=== PATIENT | male | born 2000 | race Caucasian/White ===

== ENCOUNTER 2024-07-28 20:05 | Emergency (ER) | payer OTHER, SELFPAY ==
[2024-07-28 20:08] VITALS: BP 133/89; PULSE 64; RESP 18; TEMP 36.7; O2SAT 99
--- NOTE | 2024-07-28 20:19 | ED.GENADUL_ITS ---
Discharge Plan Disposition Patient Disposition: Home Condition: Stable Discharge Details Chief Complaint: Laceration Clinical Impression: Laceration of left thumb Primary Care Provider: Mandie Guillory ED Provider: Navarro Pastrana Home Meds and New Rx's Prescriptions: No Action No Known Home Meds Discharge Instructions Instructions: Skin glue for minor cuts Additional Instructions: The wound should heal without any complications. If you have severe pain or redness spreading from the wound return to the emergency department for reevaluation HPI General Mode of arrival: ambulatory . Date/Time Provider Initiated Documentation: 07/28/24 20:11 . Limitations to Documentation: no limitations . Information obtained by: patient . History of Present Illness 24 year old M presents to the emergency department with the chief complaint of left thumb injury, described as mild, Quality is described as aching, and is localized to the left. Patient started experiencing this hour(s) (1) and it has been constant. No relieving factors improve symptom(s), No exacerbating factors reported . Patient notes no other symptoms.. Patient did receive the following treatments prior to arrival, none Related Data Home Medications ?Medication ?Instructions ?Recorded ?Confirmed Unknown [No Known Home Meds] 05/16/19 07/28/24 Allergies Allergy/AdvReac Type Severity Reaction Status Date / Time No Known Drug Allergies Allergy Unknown Verified 07/28/24 20:12 General Stated Complaint: Laceration MARRY: 4 Review of Systems All systems reviewed & are unremarkable except as noted in HPI and below Cardiovascular Cardiovascular: Denies chest pain and Denies dyspnea Respiratory Respiratory: Denies dyspnea Gastrointestinal Gastrointestinal: Denies abdominal pain and Denies vomiting Exam Const General: no acute distress Orientation: alert HENMT Head: normal to inspection Ears: external ears normal General nose exam: external nose normal Mouth: moist mucous membranes Eyes General: appearance normal, both eyes and all related structures Neck Neck: normal visual inspection Resp Effort & Inspection: normal respiratory effort and able to speak in complete sentences Cardio Rate: regular rate Skin General skin exam: no rashes or lesions noted Neuro General: patient alert and patient oriented x3 Extrem General: full ROM and capillary refill normal Psych Mental Status: mental status grossly normal Course Vital Signs Vital signs: Vital Signs Temperature 36.7 C 07/28/24 20:08 Pulse 64 07/28/24 20:08 Respiratory Rate 18 07/28/24 20:08 Blood Pressure 133/89 07/28/24 20:08 Pulse Oximetry 99 03/23/25 20:08 Temperature 36.7 C 07/28/24 20:08 Temperature Source Oral 07/28/24 20:08 Pulse 64 07/28/24 20:08 Respiratory Rate 18 07/28/24 20:08 Blood Pressure 133/89 07/28/24 20:08 Blood Pressure Position Sitting 07/28/24 20:08 Pulse Oximetry 99 07/28/24 20:08 Oxygen Delivery Method Room Air 07/28/24 20:08 Oxygen Flow Rate 0 07/28/24 20:08 Procedure Laceration Laceration 1: Patient Consented: Verbally Site: hand Side (If applicable): left Description: flap Depth: simple, single layer Pre-repair:: irrigated extensively Skin layer closed with: other (skin adhesive) Medical Decision Making 74-year-old male who denies any significant bleeding medical problems and states he is up-to-date on tetanus shots comes in with left thumb injury. 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 Denies falling or other injuries. He has a small less than 1 cm skin tear that has U-shaped on the left medial mid arm. He has full range of motion of the thumb and intact distal sensation. The wound is not deep enough to warrant sutures but I will cover with secondary adhesive to help keep the skin tear down while it heals. Close COVID with scabies to any complications. Patient is stable for discharge to return precautions given Quality:SDOH Health Related Social Needs: No Data to Display PFSH All Active Problems (Updated 07/28/24 @ 20:33 by Navarro Pastrana MD) Laceration of left thumb (Acute) Surgical History (Updated 11/18/18 @ 12:50 by Tiara Smith NP) No significant past surgical history Family History (Updated 11/18/18 @ 12:54 by Tiara Smith NP) Mother No problems noted. Father Hyperlipidemia Type 2 diabetes mellitus Hypertension Sister No problems noted. Brother No problems noted. Maternal Grandfather Hypertension Hyperlipidemia Heart disease Maternal Grandmother , at 61 of MVA No problems noted. Paternal Grandfather Stroke Type 2 diabetes mellitus Hypertension Heart disease Hyperlipidemia Paternal Grandmother No problems noted. Social History (Updated 11/18/18 @ 12:55 by Tiara Smith NP) Smoking/Tobacco Use Status: Never Second Hand Exposure: Yes Smoking risk assessment performed?: Yes Alcohol Intake: current Alcohol Intake frequency: holidays/special occasions only Drug use: Never Substance use type: does not use
[2024-07-28 20:35] VITALS: BP 123/75; PULSE 66; RESP 14; TEMP 36.7; O2SAT 99
== END 2024-07-28 21:02 | disposition home or self-care (01) ==
PROVIDERS: Emergency Provider Emergency Medicine; PCP Nurse Practitioner Family
DX: S61.012A Laceration without foreign body of left thumb without damage to nail, initial encounter (principal); W27.4XXA Contact with kitchen utensil, initial encounter; Y93.G1 Activity, food preparation and clean up
CPT/HCPCS: 12001; 99283